=== PATIENT | female | born 1990 | race Caucasian/White ===

== ENCOUNTER 2017-06-21 11:13 | Inpatient (IN) | payer OTHER ==
[~2017-06-21] VITALS: Ht 162.6 cm; Wt 72.6 kg
[2017-06-21 12:09] LABS: BASOPHIL % 0.1 % (0-2); PLATELET COUNT 260 x10^3mcL (130-400); RED CELL DISTRIBUTION WIDTH 13.7 % (11.5-14.5)
[2017-06-21 12:31] LABS: CALCIUM 9.4 mg/dL (8.5-10.1); CARBON DIOXIDE 23.5 mmol/L (21-32); CHLORIDE SERUM 100 mmol/L (98-107); CREATININE SERUM 0.8 mg/dL (0.6-1.0); GFR1 > 60 mL/min; GLUCOSE SERUM 90 mg/dL (74-106); POTASSIUM SERUM 3.8 mmol/L (3.5-5.1); SODIUM SERUM 133 mmol/L (136-145)
[2017-06-21 12:35] LABS: ALBUMIN 3.5 g/dL (3.4-5.0); ALKALINE PHOSPHATASE 60 U/L (46-116); ALT/SGPT 13 U/L (14-59); AST/SGOT 13 U/L (15-37); BILIRUBIN TOTAL 0.42 mg/dL (0.20-1.00); TOTAL PROTEIN, SERUM 7.6 g/dL (6.4-8.2)
[2017-06-21] MEDS ORDERED: PRENATAL VITAMI1 TA1 PO (12:42)
[2017-06-21 13:35] LABS: MAGNESIUM 1.7 mg/dL (1.8-2.4); PHOSPHOROUS 3.4 mg/dL (2.5-4.9)
[2017-06-21 13:36] LABS: CHOLESTEROL/HDL RATIO 2.5
[2017-06-21 13:40] LABS: T3 TOTAL 1.33 ng/mL
[2017-06-21 13:55] LABS: FREE T4 1.02 ng/dL (0.76-1.46)
[2017-06-21 13:56] LABS: T4(THYROXINE) 13.9 ug/dL (4.7-13.3)
[2017-06-21 13:57] VITALS: BP 104/69
[2017-06-21 14:18] VITALS: Ht 162.6 cm; Wt 72.6 kg
[2017-06-21 16:49] LABS: UA SPECIFIC GRAVITY 1.015 (1.005-1.035); microscopic required? YES; urine erythrocyte 3+ (NEGATIVE)
[2017-06-21 17:21] VITALS: BP 100/63
[2017-06-21 21:48] VITALS: BP 99/65
[2017-06-22 00:35] LABS: AMPHETAMINE QUAL UR NONE DETECTED (NEG <=1000)
[2017-06-22 05:50] LABS: BASOPHIL % 0.3 % (0-2); PLATELET COUNT 211 x10^3mcL (130-400); RED CELL DISTRIBUTION WIDTH 13.8 % (11.5-14.5)
[2017-06-22 05:52] LABS: CALCIUM 8.8 mg/dL (8.5-10.1); CARBON DIOXIDE 24.9 mmol/L (21-32); CHLORIDE SERUM 104 mmol/L (98-107); CREATININE SERUM 0.7 mg/dL (0.6-1.0); GFR1 > 60 mL/min; GLUCOSE SERUM 77 mg/dL (74-106); MAGNESIUM 1.9 mg/dL (1.8-2.4); POTASSIUM SERUM 3.9 mmol/L (3.5-5.1); SODIUM SERUM 137 mmol/L (136-145)
[2017-06-22 05:57] VITALS: BP 93/55
[2017-06-22 10:34] VITALS: BP 95/61
[2017-06-22 13:12] VITALS: BP 94/54
[2017-06-22 18:23] VITALS: BP 99/55
[2017-06-22 20:54] VITALS: BP 92/63
[2017-06-23 06:03] VITALS: BP 95/58
[2017-06-23 06:53] LABS: BASOPHIL % 0.3 % (0-2); PLATELET COUNT 221 x10^3mcL (130-400); RED CELL DISTRIBUTION WIDTH 13.8 % (11.5-14.5)
[2017-06-23 07:02] LABS: CALCIUM 8.5 mg/dL (8.5-10.1); CARBON DIOXIDE 26.5 mmol/L (21-32); CHLORIDE SERUM 104 mmol/L (98-107); CREATININE SERUM 0.7 mg/dL (0.6-1.0); GFR1 > 60 mL/min; GLUCOSE SERUM 97 mg/dL (74-106); SODIUM SERUM 139 mmol/L (136-145)
[2017-06-23 09:32] VITALS: BP 92/57
[2017-06-23 13:21] VITALS: BP 102/60
[2017-06-23] MEDS ORDERED: LEVAQUIN750 MG PO (14:41)
[2017-06-23] MEDS ORDERED: BD LACTINEX1.4 MG PO (14:42)
[2017-06-23] MEDS ORDERED: FERROUSAL325 MG PO (14:43)
[2017-06-23] MEDS ORDERED: VITAMIN C PURE500 MG PO (14:44)
[2017-06-23 15:01] VITALS: BP 102/60
== END 2017-06-23 15:44 | disposition home or self-care (01) | DRG 564 ==
LOC: ED 11:13 → DU 12:33
PROVIDERS: Emergency Medicine; ADMIT Family Medicine
DX: O02.1 Missed abortion (principal); N17.0 Acute kidney failure with tubular necrosis; E87.1 Hypo-osmolality and hyponatremia; E83.42 Hypomagnesemia; R80.9 Proteinuria, unspecified; Z68.27 Body mass index [BMI] 27.0-27.9, adult; E78.2 Mixed hyperlipidemia
CPT/HCPCS: 84439; J1956; J3010; J7030; J7040; Q0092

== ENCOUNTER 2020-03-05 20:34 | Emergency (ER) | payer OTHER ==
[~2020-03-05] VITALS: Ht 160 cm; Wt 61.7 kg
[~2020-03-05 20:34] MED LIST: BD LACTINEX1.4 MG PO; FERROUSAL325 MG PO; LEVAQUIN750 MG PO; PRENATAL VITAMI1 TA1 PO; VITAMIN C PURE500 MG PO
[2020-03-05 20:44] VITALS: Ht 160 cm; Wt 61.7 kg
[2020-03-05 21:33] VITALS: BP 125/71
== END 2020-03-05 21:33 | disposition home or self-care (01) ==
LOC: ED 20:34
DX: S99.922A Unspecified injury of left foot, initial encounter (principal); X58.XXXA Exposure to other specified factors, initial encounter; Y93.89 Activity, other specified; Y92.89 Other specified places as the place of occurrence of the external cause; Y99.8 Other external cause status
CPT/HCPCS: Q0092